=== PATIENT | female | born 1975 | race Two or more races ===

== ENCOUNTER 2021-02-24 12:45 | Inpatient (IN) | payer BC, OTHER ==
[~2021-02-24] VITALS: Ht 154.9 cm; Wt 108.0 kg
[2021-02-24] MEDS ORDERED: ACETAMINOPHEN 325 MG TAB PO ONE ×2 (13:00→15:45)
[2021-02-24 14:37] LABS: Basophils # (auto) 0 10 ^3/uL (0-0.2); Basophils % (auto) 0.1 % (0.0-2.0); Eosinophils # (auto) 0 10 ^3/uL (0-0.8); Hematocrit 37.3 % (36.0-46.0); Hemoglobin 13.2 g/dL (12.2-16.2); Lymphocytes # (auto) 1.1 10 ^3/uL (0.4-5.4); Lymphocytes % (auto) 24.6 % (10.0-50.0); Mean Corpuscular Hemoglobin 31.1 pg (28.0-32.0); Mean Corpuscular Hgb Conc. 35.3 g/dL (32.0-36.0); Mean Corpuscular Volume 88.1 fL (80.0-100.0); Monocytes # (auto) 0.2 10 ^3/uL (0-1.3); Monocytes % (auto) 4.4 % (0.0-12.0); Neutrophils # (auto) 3.1 10 ^3/uL (1.6-8.6); Neutrophils % (auto) 70.9 % (37.0-80.0); Red Blood Cells 4.24 10^6/uL (4.0-5.20); Red Cell Distribution Width 13.1 % (11.8-14.3); White Blood Cell 4.4 10^3/uL (4.4-10.8)
[2021-02-24 14:49] LABS: Albumin 3.6 g/dL (3.4-5.0); Anion Gap 7 (5-15); Blood Urea Nitrogen 6 mg/dL (7-18); Calcium 8.3 mg/dL (8.5-10.1); Carbon Dioxide 26 mmol/L (21-32); Chloride 102 mmol/L (98-107); Glucose 137 mg/dL (74-106); Magnesium 2.3 mg/dL (1.6-2.6); Potassium 3.5 mmol/L (3.5-5.1); Sodium 135 mmol/L (136-145)
[2021-02-24 14:55] LABS: Alanine Aminotransferase 109 U/L (13-56); Alkaline Phosphatase 103 U/L (45-117); Aspartate Aminotransferase 82 U/L (15-37); BUN/Creatinine Ratio 8.2; Bilirubin, Total 0.5 mg/dL (0.2-1.0); GFR African American 112 mL/min; GFR Non-African American 92 mL/min; Total Protein 8.2 g/dL (6.4-8.2)
[2021-02-24] MEDS ORDERED: ASCORBIC ACID 500 MG TAB PO ONE (15:00)
[2021-02-24] MEDS ORDERED: cefTRIAXone 1GM/50ML D5W 50 ML IV ONE (15:00)
[2021-02-24] MEDS ORDERED: CHOLECALCIFEROL (VITD3) 2,000 UNIT CAP/TAB PO ONE (15:00)
[2021-02-24] MEDS ORDERED: hydrOXYchloroQUINE SULFATE 200 MG TAB PO ONE (15:00)
[2021-02-24] MEDS ORDERED: ZINC SULFATE 220mg CAP or TAB PO ONE (15:00)
[2021-02-24] MEDS ORDERED: DexAMETHasone SOD PHOS 10MG/1ML VIAL INJ IV ONE (15:00)
[2021-02-24] MEDS ORDERED: AZITHROMYCIN 500MG/ 250ML 250 ML IV ONE (15:00)
[2021-02-24] MEDS ORDERED: REMDESIVIR PER PHARMACY 0 ML IV SCH (16:45)
[2021-02-24] MEDS ORDERED: MORPHINE SULF INJ 2 MG/ML SYRINGE 1ML IV PRN (16:45)
[2021-02-24] MEDS ORDERED: IVERMECTIN 3 MG TAB PO ONE (16:45)
[2021-02-24] MEDS ORDERED: NITROGLYCERIN 0.4 MG SL TAB SL PRN (16:45)
[2021-02-24] MEDS ORDERED: ACETAMINOPHEN 500 MG TAB PO PRN (16:45)
[2021-02-24 17:47] LABS: Thyroid Stimulating Hormone 1.21 uIU/mL (0.358-3.74)
[2021-02-24] MEDS ORDERED: REMDESIVIR 200 MG in NS 210ml LOADING DOSE ADULT IV ONE (18:00)
[2021-02-24 20:45] VITALS: BP 120/75
[2021-02-24] MEDS: BUDESONIDE (INHALATION) 180 MCG IH IN SCH ×2 (22:00→23:00)
[2021-02-24 22:27] VITALS: BP 120/75
[2021-02-24] MEDS: ENOXAPARIN SOD 40 MG/0.4 ML SYRINGE SC SCH (22:58)
[2021-02-25] VITALS (9 sets, daily range): BP systolic 22–127; BP diastolic 57–76
[2021-02-25 06:11] LABS: Basophils # (auto) 0 10 ^3/uL (0-0.2); Basophils % (auto) 0.9 % (0.0-2.0); Eosinophils # (auto) 0 10 ^3/uL (0-0.8); Eosinophils % (auto) 0.1 % (0.0-7.0); Hematocrit 36.8 % (36.0-46.0); Hemoglobin 12.7 g/dL (12.2-16.2); Lymphocytes # (auto) 1.1 10 ^3/uL (0.4-5.4); Lymphocytes % (auto) 30.6 % (10.0-50.0); Mean Corpuscular Hemoglobin 30.8 pg (28.0-32.0); Mean Corpuscular Hgb Conc. 34.5 g/dL (32.0-36.0); Mean Corpuscular Volume 89.3 fL (80.0-100.0); Monocytes # (auto) 0.3 10 ^3/uL (0-1.3); Monocytes % (auto) 9.4 % (0.0-12.0); Neutrophils # (auto) 2.1 10 ^3/uL (1.6-8.6); Red Blood Cells 4.12 10^6/uL (4.0-5.20); Red Cell Distribution Width 13.1 % (11.8-14.3); White Blood Cell 3.5 10^3/uL (4.4-10.8)
[2021-02-25 06:35] LABS: Calcium 8.5 mg/dL (8.5-10.1); Potassium 4.2 mmol/L (3.5-5.1)
[2021-02-25 06:48] LABS: Albumin 3.3 g/dL (3.4-5.0); Bilirubin, Total 0.3 mg/dL (0.2-1.0); Total Protein 7.7 g/dL (6.4-8.2)
[2021-02-25] MEDS: BUDESONIDE (INHALATION) 180 MCG IH IN SCH ×2 (07:32→22:25)
[2021-02-25] MEDS: DexAMETHasone SOD PHOS 10MG/1ML VIAL INJ IV SCH (08:02)
[2021-02-25] MEDS: cefTRIAXone 1GM/50ML D5W 50 ML IV SCH (08:02)
[2021-02-25] MEDS: ZINC SULFATE 220mg CAP or TAB PO SCH (08:03)
[2021-02-25] MEDS: ASCORBIC ACID 1,000 MG TAB PO SCH (08:03)
[2021-02-25] MEDS: ENOXAPARIN SOD 40 MG/0.4 ML SYRINGE SC SCH ×2 (08:03→21:53)
[2021-02-25] MEDS: CHOLECALCIFEROL (VITD3) 2,000 UNIT CAP/TAB PO SCH (08:03)
[2021-02-25] MEDS: AZITHROMYCIN 500MG/ 250ML 250 ML IV SCH (08:04)
[2021-02-25 13:42] LABS: Urine Bacteria FEW /hpf (None Seen); Urine Blood Negative /uL (Negative); Urine Specific Gravity 1.006 (1.001-1.035); Urine WBC 4 /hpf (0 - 5)
[2021-02-25] MEDS: REMDESIVIR 100mg 100 MG in SODIUM CHL 0.9% 230 ML IV SCH (16:57)
[2021-02-25] MEDS: ALBUTEROL SULF HFA 90MCG INH 200DOSE IN PRN (22:25)
[2021-02-26 05:00] VITALS: BP 105/64
[2021-02-26 06:33] LABS: Albumin 3.1 g/dL (3.4-5.0); Calcium 8.3 mg/dL (8.5-10.1); Potassium 3.7 mmol/L (3.5-5.1)
[2021-02-26 06:36] LABS: BUN/Creatinine Ratio 16.7; Bilirubin, Total 0.3 mg/dL (0.2-1.0); Total Protein 7.2 g/dL (6.4-8.2)
[2021-02-26] MEDS: ALBUTEROL SULF HFA 90MCG INH 200DOSE IN PRN ×2 (06:59→22:13)
[2021-02-26] MEDS: BUDESONIDE (INHALATION) 180 MCG IH IN SCH ×2 (06:59→22:12)
[2021-02-26 09:00] VITALS: BP 102/66
[2021-02-26] MEDS: DexAMETHasone SOD PHOS 10MG/1ML VIAL INJ IV SCH (09:56)
[2021-02-26] MEDS: cefTRIAXone 1GM/50ML D5W 50 ML IV SCH (09:56)
[2021-02-26] MEDS: ENOXAPARIN SOD 40 MG/0.4 ML SYRINGE SC SCH ×2 (09:57→21:49)
[2021-02-26] MEDS: ASCORBIC ACID 1,000 MG TAB PO SCH (09:57)
[2021-02-26] MEDS: ZINC SULFATE 220mg CAP or TAB PO SCH (09:57)
[2021-02-26] MEDS: AZITHROMYCIN 500MG/ 250ML 250 ML IV SCH (09:57)
[2021-02-26] MEDS: CHOLECALCIFEROL (VITD3) 2,000 UNIT CAP/TAB PO SCH (09:57)
[2021-02-26 13:00] VITALS: BP 106/69
[2021-02-26] MEDS: REMDESIVIR 100mg 100 MG in SODIUM CHL 0.9% 230 ML IV SCH (14:23)
[2021-02-26] MEDS ORDERED: IVERMECTIN 3 MG TAB PO ONE (16:13)
[2021-02-26] MEDS ORDERED: POTASSIUM CHL 10 Meq TABLET PO ONE (16:15)
[2021-02-26] MEDS ORDERED: ERGOCALCIFEROL 50,000 UNIT(1.25MG) CAP PO SCH (16:15)
[2021-02-26] MEDS ORDERED: FUROSEMIDE 20 MG/2 ML VIAL IV ONE (16:15)
[2021-02-26 17:00] VITALS: BP 108/71
[2021-02-26] MEDS: FAMOTIDINE 20 MG TAB PO SCH (21:49)
[2021-02-26] MEDS: TEMAZEPAM 15 MG CAP PO PRN (21:49)
[2021-02-26 22:00] VITALS: BP 107/55
[2021-02-27] VITALS (8 sets, daily range): BP systolic 96–105; BP diastolic 49–71
[2021-02-27 06:24] LABS: Albumin 3.2 g/dL (3.4-5.0); Anion Gap 5 (5-15); Blood Urea Nitrogen 12 mg/dL (7-18); Calcium 8.6 mg/dL (8.5-10.1); Carbon Dioxide 27 mmol/L (21-32); Chloride 107 mmol/L (98-107); Glucose 119 mg/dL (74-106); Magnesium 2.6 mg/dL (1.6-2.6); Potassium 3.9 mmol/L (3.5-5.1); Sodium 139 mmol/L (136-145)
[2021-02-27 06:28] LABS: Alanine Aminotransferase 262 U/L (13-56); Alkaline Phosphatase 98 U/L (45-117); Aspartate Aminotransferase 135 U/L (15-37); BUN/Creatinine Ratio 21.4; Bilirubin, Direct < 0.1 mg/dL (0-0.2); Bilirubin, Total 0.3 mg/dL (0.2-1.0); GFR African American 152 mL/min; GFR Non-African American 126 mL/min; Total Protein 7.8 g/dL (6.4-8.2)
[2021-02-27] MEDS ORDERED: FUROSEMIDE 20 MG/2 ML VIAL IV SCH (10:00)
[2021-02-27] MEDS ORDERED: IVERMECTIN 3 MG TAB PO SCH (10:00)
[2021-02-27] MEDS: CHOLECALCIFEROL (VITD3) 2,000 UNIT CAP/TAB PO SCH (10:00)
[2021-02-27] MEDS: cefTRIAXone 1GM/50ML D5W 50 ML IV SCH (10:03)
[2021-02-27] MEDS: DexAMETHasone SOD PHOS 10MG/1ML VIAL INJ IV SCH (10:03)
[2021-02-27] MEDS: AZITHROMYCIN 500MG/ 250ML 250 ML IV SCH (10:04)
[2021-02-27] MEDS: ZINC SULFATE 220mg CAP or TAB PO SCH (10:04)
[2021-02-27] MEDS: FAMOTIDINE 20 MG TAB PO SCH ×2 (10:04→21:26)
[2021-02-27] MEDS: POTASSIUM CHL 10 Meq TABLET PO SCH (10:04)
[2021-02-27] MEDS: ASCORBIC ACID 1,000 MG TAB PO SCH (10:05)
[2021-02-27] MEDS: ENOXAPARIN SOD 40 MG/0.4 ML SYRINGE SC SCH ×2 (10:05→21:27)
[2021-02-27] MEDS: BUDESONIDE (INHALATION) 180 MCG IH IN SCH ×2 (10:22→21:39)
[2021-02-27] MEDS: ALBUTEROL SULF HFA 90MCG INH 200DOSE IN PRN ×2 (10:22→21:39)
[2021-02-27] MEDS: REMDESIVIR 100mg 100 MG in SODIUM CHL 0.9% 230 ML IV SCH (15:57)
[2021-02-27] MEDS: TEMAZEPAM 15 MG CAP PO PRN (21:28)
[2021-02-28 05:00] VITALS: BP 103/76
[2021-02-28] MEDS: ALBUTEROL SULF HFA 90MCG INH 200DOSE IN PRN (06:40)
[2021-02-28] MEDS: BUDESONIDE (INHALATION) 180 MCG IH IN SCH (06:40)
[2021-02-28 06:45] LABS: Albumin 3.1 g/dL (3.4-5.0); Calcium 8.4 mg/dL (8.5-10.1); Potassium 3.9 mmol/L (3.5-5.1)
[2021-02-28 06:51] LABS: Bilirubin, Total 0.4 mg/dL (0.2-1.0); Total Protein 7.5 g/dL (6.4-8.2)
[2021-02-28 08:30] VITALS: BP 98/55
[2021-02-28] MEDS: cefTRIAXone 1GM/50ML D5W 50 ML IV SCH (08:58)
[2021-02-28] MEDS: CHOLECALCIFEROL (VITD3) 2,000 UNIT CAP/TAB PO SCH (11:27)
[2021-02-28] MEDS: ASCORBIC ACID 1,000 MG TAB PO SCH (11:27)
[2021-02-28] MEDS: ENOXAPARIN SOD 40 MG/0.4 ML SYRINGE SC SCH ×2 (11:28→21:08)
[2021-02-28] MEDS: POTASSIUM CHL 10 Meq TABLET PO SCH (11:28)
[2021-02-28] MEDS: FAMOTIDINE 20 MG TAB PO SCH ×2 (11:28→21:08)
[2021-02-28] MEDS: AZITHROMYCIN 500MG/ 250ML 250 ML IV SCH (11:29)
[2021-02-28] MEDS: DexAMETHasone SOD PHOS 10MG/1ML VIAL INJ IV SCH (11:29)
[2021-02-28] MEDS: IVERMECTIN 3 MG TAB PO SCH (11:51)
[2021-02-28 12:35] VITALS: BP 104/60
[2021-02-28] MEDS: REMDESIVIR 100mg 100 MG in SODIUM CHL 0.9% 230 ML IV SCH (15:22)
[2021-02-28] MEDS: ZINC SULFATE 220mg CAP or TAB PO SCH (15:22)
[2021-02-28 16:50] VITALS: BP 109/64
[2021-02-28 22:00] VITALS: BP 103/57
[2021-03-01 05:00] VITALS: BP 101/67
[2021-03-01] MEDS: BUDESONIDE (INHALATION) 180 MCG IH IN SCH ×2 (08:50→22:19)
[2021-03-01 08:52] VITALS: BP 135/75
[2021-03-01] MEDS: POTASSIUM CHL 10 Meq TABLET PO SCH (10:00)
[2021-03-01] MEDS: ASCORBIC ACID 1,000 MG TAB PO SCH (10:03)
[2021-03-01] MEDS: ZINC SULFATE 220mg CAP or TAB PO SCH (10:04)
[2021-03-01] MEDS: FAMOTIDINE 20 MG TAB PO SCH ×2 (10:04→22:31)
[2021-03-01] MEDS: IVERMECTIN 3 MG TAB PO SCH (10:04)
[2021-03-01] MEDS: cefTRIAXone 1GM/50ML D5W 50 ML IV SCH (10:04)
[2021-03-01] MEDS: CHOLECALCIFEROL (VITD3) 2,000 UNIT CAP/TAB PO SCH (10:04)
[2021-03-01] MEDS: DexAMETHasone SOD PHOS 10MG/1ML VIAL INJ IV SCH (10:05)
[2021-03-01] MEDS: AZITHROMYCIN 500MG/ 250ML 250 ML IV SCH (10:05)
[2021-03-01] MEDS: ENOXAPARIN SOD 40 MG/0.4 ML SYRINGE SC SCH ×2 (10:05→22:30)
[2021-03-01 13:18] VITALS: BP 140/65
[2021-03-01 16:59] VITALS: BP 149/73
[2021-03-01 22:00] VITALS: BP 120/54
[2021-03-01] MEDS: ALBUTEROL SULF HFA 90MCG INH 200DOSE IN PRN (22:19)
[2021-03-02 05:00] VITALS: BP 102/66
[2021-03-02] MEDS: ALBUTEROL SULF HFA 90MCG INH 200DOSE IN PRN (06:27)
[2021-03-02] MEDS: BUDESONIDE (INHALATION) 180 MCG IH IN SCH (06:28)
[2021-03-02 06:38] LABS: Alanine Aminotransferase 117 U/L (13-56); Albumin 3.2 g/dL (3.4-5.0); Alkaline Phosphatase 86 U/L (45-117); Aspartate Aminotransferase 24 U/L (15-37); Bilirubin, Direct < 0.1 mg/dL (0-0.2); Bilirubin, Total 0.2 mg/dL (0.2-1.0); CRP High Sensitivity 0.42 mg/dL (< 0.3); Magnesium 2.6 mg/dL (1.6-2.6); Total Protein 7.1 g/dL (6.4-8.2)
[2021-03-02 08:46] VITALS: BP 94/56
[2021-03-02] MEDS: IVERMECTIN 3 MG TAB PO SCH (10:15)
[2021-03-02] MEDS: ENOXAPARIN SOD 40 MG/0.4 ML SYRINGE SC SCH (10:15)
[2021-03-02] MEDS: ZINC SULFATE 220mg CAP or TAB PO SCH (10:15)
[2021-03-02] MEDS: FAMOTIDINE 20 MG TAB PO SCH (10:15)
[2021-03-02] MEDS: DexAMETHasone SOD PHOS 10MG/1ML VIAL INJ IV SCH (10:15)
[2021-03-02] MEDS: cefTRIAXone 1GM/50ML D5W 50 ML IV SCH (10:15)
[2021-03-02] MEDS: CHOLECALCIFEROL (VITD3) 2,000 UNIT CAP/TAB PO SCH (10:15)
[2021-03-02] MEDS: ASCORBIC ACID 1,000 MG TAB PO SCH (10:15)
[2021-03-02 13:00] VITALS: BP 101/62
[2021-03-02 13:21] VITALS: BP 94/56
[2021-03-02] MEDS ORDERED: ALBUAER3 IN (14:12)
[2021-03-02] MEDS ORDERED: BUDE2SUS3 IN (14:12)
[2021-03-02] MEDS ORDERED: ZINC220T6 PO (14:12)
[2021-03-02] MEDS ORDERED: CHOL20007 PO (14:12)
[2021-03-02] MEDS ORDERED: DOXY-286 PO (14:12)
[2021-03-02] MEDS ORDERED: ASCO10003 PO (14:12)
[2021-03-02] MEDS ORDERED: ASPI-378 PO (14:12)
[2021-03-02] MEDS ORDERED: DEX4T PO (14:12)
[2021-03-02] MEDS ORDERED: FAMO20TA10 PO (14:12)
== END 2021-03-02 14:50 | disposition home or self-care (01) | DRG 177 ==
LOC: ER 12:45 → TELE 16:45 → TELE-EAST 20:10
PROVIDERS: ADMIT Nurse Practitioner Acute Care; ATTEND Internal Medicine
PROC: XW033E5 Introduction of Remdesivir Anti-infective into Peripheral Vein, Percutaneous Approach, New Technology Group 5 (ICD-10-PCS; principal; 2021-02-24)
PROC: XW13325 Transfusion of Convalescent Plasma (Nonautologous) into Peripheral Vein, Percutaneous Approach, New Technology Group 5 (ICD-10-PCS; 2021-02-25)
DX: U07.1 COVID-19 (principal); J12.82 Pneumonia due to coronavirus disease 2019; J96.01 Acute respiratory failure with hypoxia; Z68.41 Body mass index [BMI] 40.0-44.9, adult; D68.59 Other primary thrombophilia; E66.01 Morbid (severe) obesity due to excess calories; D89.839 Cytokine release syndrome, grade unspecified; E55.9 Vitamin D deficiency, unspecified; Z83.3 Family history of diabetes mellitus; R73.9 Hyperglycemia, unspecified; R74.8 Abnormal levels of other serum enzymes
CPT/HCPCS: 36415; 36600; 71045; 80053; 80076; 81001; 82306; 82728; 82805; 83036; 83605; 83615; 83735; 84132; 84443; 84484; 85025; 85049; 85379; 86141; 86850; 86900; 86901; 87040; 87426; 93005; 94640; 96365; 96375; 99291; G0378; J0696; J1100